=== PATIENT | male | born 1955 | race Caucasian/White ===

== ENCOUNTER → 2017-08-29 | Outpatient (CLI) | payer BC ==
--- NOTE | 2017-08-29 16:09 | PCVCIMAG ---
APPROVED REPORT Study performed: 08/29/2017 14:59:26 EXAM: Comprehensive 2D, Doppler, and color-flow Echocardiogram Patient Location: Echo lab Status: routine BSA: 1.85 HR: 77 bpmBP: 130/86 mmHg Rhythm: NSR Other Information Study Quality: Adequate Risk Factors: Cardiac Risk Factors: HTN Indications Dyspnea tobacco use 2D Dimensions LVEF(%): 51.93 (>50%) IVSd: 8.30 (7-11mm) LVDd: 41.96 mm PWd: 9.23 (7-11mm) LVDs: 30.92 (25-40mm) Left Atrium: 32.66 (27-40mm) Aortic Root: 30.19 mm LV Single Plane 4CH: 62.59 % LV Single Plane 2CH: 67.04 %Patino's LVEF: 64.82 % Biplane EF: 65.3 % Volumes Left Atrial Volume (Systole) Single Plane 4CH: 41.07 mLSingle Plane 2CH: 55.05 mL LA ESV Index: 27.00 mL/m2 Aortic Valve AoV Peak Damon.: 1.46 m/s AO Peak Gr.: 8.53 mmHgLVOT Max P.94 mmHg LVOT Max V: 1.11 m/s Mitral Valve E/A Ratio: 1.0 MV Decel. Time: 230.61 ms MV E Max Damon.: 0.50 m/s MV A Damon.: 0.48 m/s IVRT: 121.11 ms Pulmonary Valve PV Peak Damon.: 1.03 m/sPV Peak Gr.: 4.20 mmHg Pulmonary Vein P Vein S: 0.27 m/sP Vein A: 0.73 m/s P Vein D: 0.37 m/sP Vein A Dur.: 138.4 msec P Vein S/D Ratio: 0.73 Tricuspid Valve TR Peak Damon.: 2.33 m/s TR Peak Gr.: 21.67 mmHg Left Ventricle The left ventricle is normal size. There is normal LV segmental wall motion. There is normal left ventricular wall thickness. Left ventricular systolic function is normal. The left ventricular ejection fraction is within the normal range. LVEF is 60%. Grade I - abnormal relaxation pattern. Right Ventricle The right ventricle is normal size. The right ventricular systolic function is normal. Atria The left atrium size is normal. The right atrium size is normal. Aortic Valve The aortic valve is normal in structure. No aortic regurgitation is present. There is no aortic valvular stenosis. Mitral Valve The mitral valve is normal in structure. Mild mitral regurgitation. No evidence of mitral valve stenosis. Tricuspid Valve The tricuspid valve is normal in structure. Trace tricuspid regurgitation with PAP of 29 mmHg. Pulmonic Valve The pulmonary valve is normal in structure. There is no pulmonic valvular regurgitation. Great Vessels The aortic root is normal in size. IVC is normal in size and collapses with >50% inspiration Pericardium There is no pericardial effusion. <Conclusion> The left ventricle is normal size. Left ventricular systolic function is normal. Grade I - abnormal relaxation pattern. The right ventricle is normal size. The aortic valve is normal in structure. Mild mitral regurgitation. Trace tricuspid regurgitation with PAP of 29 mmHg.
--- NOTE | 2017-08-29 16:10 | PCVCIMAG ---
APPROVED REPORT Exam: Stress Echocardiogram Indication: Dyspnea, HTN, HLP, tobacco use Patient Location: Echo lab Stress Nurse: Nafisa Matthews RN Status: routine Ht: 5 ft 10 in HR: 100 bpm BP: 130/86 mmHg Rhythm: NSR Procedure The patient underwent an Exercise Stress Test using the Enoch Protocol. Blood pressure, heart rate, and EKG were monitored. An Echocardiogram was performed by smt technician in four stages in quad fashion. At peak stress, four selected images were obtained and placed side by side with resting images for comparison. Stress Test Details Stress Test: Exercise stress testing was performed using a Enoch protocol. HR Resting HR: 100 bpmMax Heart Rate (APMHR): 157 bpm Max HR Achieved: 169 bpmTarget HR (85% APMHR): 133 bpm % of APMHR: 107 Recovery HR: 118 bpm HR response to stress: Normal HR response to stress BP Resting BP: 130/86 mmHg Max BP: 202/84 mmHg Recovery BP: 150/80 mmHg ECG Resting ECG: Sinus Rhythm Stress ECG: Sinus Rhythm ST Change: Normal Arrhythmia: occasional isolated PVC Recovery ECG: Sinus Rhythm Recovery ST Change: Normal Recovery Arrhythmia: None Clinical Reason for Termination: Maximal effort, Dyspnea Stress Symptoms: Dyspnea Exercise duration: 9 min 57 sec Highest Stage Achieved: Stage 4: 4.2 mph at 16% grade. Exercise capacity: 13.2 METs Overall Exercise Capacity for Age: Good Angina Score: None Pre-Stress Echo The resting Echocardiogram showed normal left ventricular contractility with an estimated Ejection Fraction of about >55%. Normal wall motion in all segments on baseline images. Post-Stress Echo The stress Echocardiogram showed normal left ventricular contractility with an estimated Ejection Fraction of about 65%. Normal augmentation of wall motion in all segments on post stress images. Clinical No clinical or ECG evidence for ischemia. Conclusion Clinical Response: Non-ischemic Exercise Capacity: Above average Stress ECG Response: Non-ischemic Stress Echo Images: Non-ischemic The left ventricle is normal in size and wall thickness in both the rest and stress images. Other Information Study Quality: Good <Conclusion> The left ventricle is normal in size and wall thickness in both the rest and stress images.
== END | disposition home or self-care (01) ==
LOC: PCVCIMAG 15:11
PROVIDERS: ATTEND Internal Medicine Cardiovascular Disease
DX: I34.0 Nonrheumatic mitral (valve) insufficiency (principal); I10 Essential (primary) hypertension; R06.00 Dyspnea, unspecified; E78.00 Pure hypercholesterolemia, unspecified; F17.200 Nicotine dependence, unspecified, uncomplicated; Z79.899 Other long term (current) drug therapy
CPT/HCPCS: 36415; 80061; 93005; 93306; 93351